=== PATIENT | female | born 1970 | race Caucasian/White ===

== ENCOUNTER → 2021-10-21 | Day surgery (SDC) | payer BC ==
[~2021-10-21] MED LIST: JARDIANCE10 MG PO; LISINOPRIL10 MG PO; METFORMIN HCL1000 M1 PO; PROTONIX 40 MG40 M1 PO; PROZAC40 MG PO
== END | disposition home or self-care (01) ==
LOC: OR 06:15
DX: R10.13 Epigastric pain (principal); K59.09 Other constipation; R19.7 Diarrhea, unspecified; R11.0 Nausea; U07.1 COVID-19; Z87.19 Personal history of other diseases of the digestive system; Z79.84 Long term (current) use of oral hypoglycemic drugs; Z79.899 Other long term (current) drug therapy
CPT/HCPCS: 84703; J2704; J7030; U0002